=== PATIENT | male | born 1935 | race Caucasian/White ===

== ENCOUNTER 2021-06-08 11:37 | Outpatient (CLI) | payer MEDICARE, MEDICAID, SELFPAY ==
--- NOTE | 2021-06-08 11:50 | USCV_ITS ---
Christian Ace Age: 85 Gender: M : 1935 Exam Date: 06/08/2021 11:46 Ordering Phys: Angel Martin MD Technologist: Jesus Elliott RVT Exam Location: [facility] [place]_ Indication: COLD FEET RIGHT LEFT Brachial 178.00 mmHg Brachial 168.00 mmHg Pressure (mmHg) Waveform Pressure (mmHg) Waveform 93.00 MOTOR TESTER 192 190.00 DPA 240 1.07 Ankle/Brachial Index 75.00 Pre-Exercise Toe Pressure 70.00 0.42 Pre-Exercise Toe/Brachial Index 0.39 FINDINGS Resting VIKTORIYA of 1.07 on the right side and noncompressible vessels at the left ankle. Resting TBI 0.42 on the right side and 0.39 on the left side CONCLUSIONS Features suggestive of mild peripheral artery disease on the right side Features suggestive of moderate peripheral artery disease on the left side No similar previous studies are available for comparison Dr Suni Garcia MD [facility] (Electronically Signed) Final Date: 08 June 2021 19:24 S
== END 2021-06-08 11:38 | disposition home or self-care (01) ==
LOC: RAD 11:45
PROVIDERS: PCP Family Medicine; Visit Provider Family Medicine
DX: R68.89 Other general symptoms and signs (principal)
CPT/HCPCS: 93922

== ENCOUNTER 2021-09-18 08:08 | Outpatient (CLI) | payer MEDICARE, MEDICAID, SELFPAY ==
--- NOTE | 2021-09-18 08:13 | US_ITS ---
WS: [id number] ULTRASOUND SOFT TISSUES LEFT lateral lower thorax. HISTORY: LIPOMA/MASS OVER L LATERAL LOWER RIBS COMPARISON: None available. TECHNIQUE: 2-D and color Doppler imaging is submitted. Soft tissue masses along the LEFT lateral lower thorax. Corresponds to the palpable abnormalities. Th gosia masses are just slightly hyperechoic to the adjacent soft tissues. Confluent mass measures 6.6 x 5.8 x 3.2 cm. There is no increased vascularity. US/US soft tissue/extremity [id number] IMPRESSION: Soft tissue masses closely associated with each other along the LEFT lateral lo wer rib cage. Imaging findings consistent with lipomas. No increased vascularit y.
== END 2021-09-18 08:09 | disposition home or self-care (01) ==
LOC: RAD 08:09
PROVIDERS: PCP Family Medicine; Visit Provider Family Medicine
DX: D17.9 Benign lipomatous neoplasm, unspecified (principal)
CPT/HCPCS: 76882

== ENCOUNTER 2022-12-11 07:42 | Outpatient (CLI) | payer MEDICARE, MEDICAID, SELFPAY ==
--- NOTE | 2022-12-11 07:48 | US_ITS ---
WS: [id number] ULTRASOUND SOFT TISSUES RIGHT neck. HISTORY: NECK MASS COMPARISON: None available. TECHNIQUE: 2-D and color Doppler imaging is submitted. Ultrasound is directed to the RIGHT neck in the area of the palpable abnormality. There is a hypoecho ic well-circumscribed nodule measuring 7 x 7 x 4 mm. No increased vascularity. Probably a lymph node although the fatty hilum is not well demonstrated. The size is otherwise normal. Similar findings not ed on the LEFT neck. US/US soft tissue/extremity [id number] IMPRESSION: Palpable nodules RIGHT lateral neck correspond to benign-appearing lymph nodes.
== END 2022-12-11 07:43 | disposition home or self-care (01) ==
PROVIDERS: PCP Family Medicine; Visit Provider Family Medicine
DX: R22.1 Localized swelling, mass and lump, neck (principal)
CPT/HCPCS: 76882

== ENCOUNTER 2023-03-07 09:06 | Emergency (ER) | payer MEDICARE, MEDICAID, SELFPAY ==
[2023-03-07 09:07] VITALS: BP 200/96; PULSE 73; RESP 18; TEMP 36.5; O2SAT 98; BMI 31.4
--- NOTE | 2023-03-07 09:26 | XRR_ITS ---
PROCEDURE INFORMATION: Exam: XR Left Hip Exam date and time: 03/07/2023 9:39 AM Age: 87 years old Clinical indication: Injury or trauma; Fall; Blunt trauma (contusions or hematomas); Left; Hip TECHNIQUE: Imaging protocol: Radiologic exam of the left hip. Views: 2 or 3 views hip with pelvis when performed. COMPARISON: No relevant prior studies available. FINDINGS: Limitations: Study is limited two-view examination with suboptimal patient positioning. Bones/joints: There is an obliquely oriented linear area of sclerosis along the medial aspect of the left femoral head that may be due to overlap but inconclusive for fracture. Left pubic bone and pubic rami are difficult to assess due to obscuring fecal material. Remainder of visualized osseous structures are intact. No dislocation or malalignment. Soft tissues: Unremarkable. XR/XR hip LT 2-3V wo/w pel* [id number] IMPRESSION: Findings inconclusive for fracture of the left femoral head. Recommend follow-up CT exam of the pelvis for clarification.
--- NOTE | 2023-03-07 09:26 | XRR_ITS ---
PROCEDURE INFORMATION: Exam: XR Pelvis Exam date and time: 03/07/2023 9:44 AM Age: 87 years old Clinical indication: Injury or trauma; Fall; Blunt trauma (contusions or hematomas); Does not apply; Pelvic region TECHNIQUE: Imaging protocol: Radiologic exam of the pelvis. Views: 1 or 2 view. COMPARISON: CR XR hip LT 2-3V wo/w pel* [id number] 03/07/2023 9:39 AM FINDINGS: Bones/joints: Unremarkable. No fracture, malalignment or deformity detected. No significant degenerative joint changes. Soft tissues: Unremarkable. XR/XR pelvis 1-2V* [id number] IMPRESSION: No acute findings.
--- NOTE | 2023-03-07 09:27 | ED_ITS ---
HPI - Fall General: Chief Complaint: Fall Stated Complaint: fall, left side/lower body injury Time Seen by Provider: 03/07/23 09:08 Source: patient Mode of arrival: ambulatory History of Present Illness: 87-year-old male who presents emergency room using a walker. About 4 to 5 days ago he was using his walker slipped out from underneath him and he landed on his buttocks he did not strike his head he did not lose consciousness. He has been ambulating since then with a walker he ambulated to the exam room today he is able to bear weight but does have some discomfort no back pain he denies striking his head there is no loss of consciousness. This morning he noticed some ecchymosis on the medial and posterior aspects of his left thigh. MD complaint: fall Onset (ago): day(s) (4) Fall from: standing Fall witnessed: yes, by family Place fall occurred: home Symptoms prior to fall: none Location of injury: head Associated symptoms-after fall: Denies abdominal pain, chest pain or neck pain Review of Systems Const: Denies: fever(s) or chills Card: Denies: chest pain Resp: Denies: dyspnea GI: Denies: abdominal pain : Denies: dysuria, urinary frequency or urinary urgency Musc: Denies: neck pain or back pain Skin/Breast: Denies: rash Physical Exam Const: GENERAL APPEARANCE: cooperative and comfortable ORIENTATION/CONSCIOUSNESS: Yes awake, Yes oriented to person, Yes oriented to place and Yes oriented to time HENMT: COMMON NORMALS: normocephalic, atraumatic and hearing grossly normal bilaterally HEAD & SCALP: normocephalic and atraumatic Resp: COMMON NORMALS: normal respiratory effort, No retractions, No use of accessory muscles and clear to auscultation bilaterally AUSCULTATION: clear to auscultation bilaterally Cardio: COMMON NORMALS: regular rate, regular rhythm and No murmurs present (Cardio) RATE: regular rate RHYTHM: regular rhythm GI: COMMON NORMALS: Soft to palpation and No hepatosplenomegaly present AUSCULTATION: Yes normoactive bowel sounds PALPATION: Yes Soft to palpation, No Tenderness to palpation present (GI), No Guarding due to palpation present (GI) and Yes No hepatosplenomegaly present Extremity: COMMON NORMALS: normal to inspection, capillary refill normal, no clubbing, cyanosis or edema, no calf tenderness and no pedal edema OTHER: Ecchymosis medial and posterior left thigh no induration no signs of infection Neuro: SENSORIUM/ORIENTATION: Yes oriented to person, Yes oriented to place and Yes oriented to time Skin: COMMON NORMALS: no rashes or lesions noted GENERAL SKIN EXAM: no rashes or lesions noted Course Vital Signs: Vital signs: Vital Signs Temperature 97.7 F 03/07/23 09:07 Pulse Rate 66 03/07/23 11:27 Respiratory Rate 16 03/07/23 11:27 Blood Pressure 160/88 03/07/23 11:27 Pulse Oximetry 96 03/07/23 11:27 Oxygen Delivery Me thod Room Air 03/07/23 11:27 MDM - Fall Medical Decision Making Pelvis x-rays were normal of left hip there is a question of possible subclinical femoral head fracture recommended CT. CT did not show any acute fracture. Suspect the hematoma is from soft tissue injury with the fall. Reviewed findings with the patient. No evidence of DVT at this time reassured him that the hematoma forming in the back of the left leg is not what we generally worry about with a deep vein thrombosis. Medical Records I reviewed the patient's medical records. Lab Data I reviewed the patient's lab results. 03/07/23 09:36 03/07/23 09:36 Radiology Impressions Hip/Pelvis X-Ray 03/07/23 09:26 IMPRESSION: Findings inconclusive for fracture of the left femoral head. Recommend follow-up CT exam of the pelvis for clarification. Pelvis X-Ray 03/07/23 09:26 IMPRESSION: No acute findings. Laboratory Results WBC 3.07 10^3/uL (3.29-11.43) L 03/07/23 09:36 RBC 3.65 10^6/uL (3.85-5.65) L 03/07/23 09:36 Hgb 12.40 g/dL (11.27-16.99) 03/07/23 09:36 Hct 36.8 % (37-53) L 03/07/23 09:36 MCV 100.8 fl (82-101) 03/07/23 09:36 MCH 34.0 pg (27-33) H 03/07/23 09:36 MCHC 33.7 g/dL (30-55) 03/07/23 09:36 RDW 17.8 % (12.1-15.1) H 03/07/23 09:36 Plt Count 93 10^3/cmm (157-399) L 03/07/23 09:36 MPV 8.0 fL (7.4-10.4) 03/07/23 09:36 Neut % (Auto) 64.1 % 03/07/23 09:36 Lymph % (Auto) 29.0 % 03/07/23 09:36 [place] % (Auto) 4.9 % 03/07/23 09:36 Eos % (Auto) 1.0 % 03/07/23 09:36 Baso % (Auto) 0.7 % 03/07/23 09:36 Neut # (Auto) 1.97 10^3/uL (1.8-7.7) 03/07/23 09:36 Lymph # (Auto) 0.9 10^3/uL (0.8-4.8) 03/07/23 09:36 [place] # (Auto) 0.2 10^3/uL (0.2-0.9) 03/07/23 09:36 Eos # (Auto) 0.0 10^3/uL (0.0-0.8) 03/07/23 09:36 Baso # (Auto) 0.0 10^3/uL (0.0-0.1) 03/07/23 09:36 Nucleated RBC % (auto) 0 % 03/07/23 09:36 Nucleated RBCs # 0.0 /100WBC 03/07/23 09:36 Sodium 143 mmol/L (136-145) 03/07/23 09:36 Potassium 4.5 mmol/L (3.5-5.1) 03/07/23 09:36 Chloride 107 mmol/L (98-107) 03/07/23 09:36 Carbon Dioxide 27 mmol/L (22-29) 03/07/23 09:36 Anion Gap 13.5 (5-19) 03/07/23 09:36 BUN 24 mg/dL (8-23) H 03/07/23 09:36 Creatinine 1.0 mg/dL (0.7-1.2) 03/07/23 09:36 GFR Calculation Not Reportable 03/07/23 09:36 Glucose 104 mg/dL (65-115) 03/07/23 09:36 Calculated Osmolality 300 mOsm/kg (285-295) H 03/07/23 09:36 Calcium 9.0 mg/dL (8.5-10.5) 03/07/23 09:36 Total Bilirubin 1.7 mg/dL (0.15-1.2) H 03/07/23 09:36 AST 13 U/L (0-40) 03/07/23 09:36 ALT 8 U/L (0-41) 03/07/23 09:36 Alkaline Phosphatase 72 U/L (40-130) 03/07/23 09:36 Total Protein 6.6 g/dL (6.6-8.7) 03/07/23 09:36 Albumin 4.3 g/dL (3.5-5.2) 03/07/23 09:36 Globulin 2.3 g/dL (1.3-4.6) 03/07/23 09:36 Urine Color Dark yellow (Yellow) 03/07/23 10:27 Urine Appearance Clear (CLEAR) 03/07/23 10:27 Urine pH 5 (5-7) 03/07/23 10:27 Ur Specific [place] 1.020 (1.005-1.030) 03/07/23 10:27 Urine Protein Neg (Negative) 03/07/23 10:27 Urine Glucose (UA) Norm (Normal) 03/07/23 10:27 Urine Ketones Negative (Negative) 03/07/23 10:27 Urine Blood 2+ (Negative) H 03/07/23 10:27 Urine Nitrate Negative (Negative) 03/07/23 10:27 Urine Bilirubin Neg (Negative) 03/07/23 10:27 Urine Urobilinogen 1 mg/dL (Negative) H 03/07/23 10:27 Ur Leukocyte Esterase Negative (Negative) 03/07/23 10:27 Urine RBC 0-4 /hpf (0-2) H 03/07/23 10:27 Urine WBC 0-4 /hpf (0-5) H 03/07/23 10:27 Ur Squamous Epith Cells 0-4 /hpf (0-5) H 03/07/23 10:27 Amorphous Sediment Not Reportable 03/07/23 10:27 Urine Bacteria Trace /hpf (NONE) 03/07/23 10:27 Urine Mucus 1+ /hpf 03/07/23 10:27 All radiology interpretation(s) finalized by discharge Discharge Plan Discharge Patient Disposition: Home Clinical Impression: Fall, Acute pain of left hip Condition: Stable Prescriptions: No Action cilostazol 100 mg tablet 100 mg PO BID lisinopril 10 mg tablet 10 mg PO DAILY fluoxetine 10 mg capsule 10 mg PO DAILY Aspir-81 81 mg Tablet,Delayed Release (Dr/Ec) 81 mg PO DAILY Discharge Orders: Discharge ED (Routine); Ordered 03/07/23 Ordered By: Cipriano Ceja Referrals: Angel Martin MD [Primary Care Provider] - Discharge Diet: Usual diet Discharge Activity: Increase activity as tolerated Patient Instructions: Opioid Safety, Pain Management Activity Restrictions/Additional Instructions: You were seen today for a fall and bruising in your left leg. x-rays and CT did not show any acute fracture. You can use ice ibuprofen or Tylenol for relief of symptoms follow-up with your primary care doctor as needed. Coding Level of Care Code ED Virtual Customer Assistant for Lo Vasquez
[2023-03-07 09:43] LABS: Basophils % 0.7 %; Hematocrit 36.8 % (37-53); Lymphocytes # 0.9 10^3/uL (0.8-4.8); Mean Corpuscular HGB Conc 33.7 g/dL (30-55); Mean Corpuscular Volume 100.8 fl (82-101); Monocytes # 0.2 10^3/uL (0.2-0.9); Monocytes % 4.9 %; Neutrophils # 1.97 10^3/uL (1.8-7.7); Neutrophils % 64.1 %; Nucleated Red Blood Cells % 0 %; Platelet Count 93 10^3/cmm (157-399); Red Blood Count 3.65 10^6/uL (3.85-5.65); Red Cell Distribution Width 17.8 % (12.1-15.1); White Blood Count 3.07 10^3/uL (3.29-11.43)
[2023-03-07 09:54] VITALS: BP 191/87; PULSE 70; RESP 16; O2SAT 97
[2023-03-07 10:03] LABS: Alanine Aminotransferase 8 U/L (0-41); Albumin Level 4.3 g/dL (3.5-5.2); Alkaline Phosphatase 72 U/L (40-130); Anion Gap 13.5 (5-19); Aspartate Amino Transferase 13 U/L (0-40); Blood Urea Nitrogen 24 mg/dL (8-23); Carbon Dioxide 27 mmol/L (22-29); Chloride 107 mmol/L (98-107); Globulin 2.3 g/dL (1.3-4.6); Glucose 104 mg/dL (65-115); Osmolality Calculated 300 mOsm/kg (285-295); Potassium 4.5 mmol/L (3.5-5.1); Sodium 143 mmol/L (136-145); Total Bilirubin 1.7 mg/dL (0.15-1.2); Total Protein 6.6 g/dL (6.6-8.7)
--- NOTE | 2023-03-07 10:37 | CT_ITS ---
WS: [id number] NONCONTRAST CT LEFT HIP TECHNIQUE: Noncontrast CT LEFT hip with coronal and sagittal reformatted images. CLINICAL INFORMATION: trauma COMPARISON: None. DLP: 494.[address] scans at [facility] use at least one of these dose optimization techniques: automated e xposure control; mA and/or kV adjustment per patient size (includes targeted exams where dose is matc hed to clinical indication); or iterative reconstruction. FINDINGS: Osteopenia. Moderate degenerative arthritis LEFT hip. Hypertrophic changes about the acetabulum and f emoral neck. Normal femoral head. No acute fractures. No evidence of avascular necrosis. Normal visua lized pubic rami. Vascular calcification. Degenerative arthritis LEFT sacroiliac joint. Normal acetab ulum. IMPRESSION: No acute LEFT hip fractures
[2023-03-07 10:55] LABS: Add Urine Microscopic? YES; Bilirubin Urine Neg (Negative); Blood Urine 2+ (Negative); Glucose Urine UA Norm (Normal); Ketones Urine Negative (Negative); Leukocyte Esterase Urine Negative (Negative); Nitrate Urine Negative (Negative); Protein Urine Neg (Negative); Urine Appearance Clear (CLEAR); Urine Color Dark Yellow (Yellow); Urobilinogen Urine 1 mg/dL (Negative); pH Urine 5 (5-7)
[2023-03-07 11:09] LABS: Add Urine Culture? No; Bacteria Urine TRACE /hpf; Mucus Urine 1+ /hpf; RBC Urine 0-4 /hpf (0-2); Squamous Epithelial Cell Urine 0-4 /hpf (0-5); WBC Urine 0-4 /hpf (0-5)
[2023-03-07 11:27] VITALS: BP 160/88; PULSE 66; RESP 16; O2SAT 96
== END 2023-03-07 12:02 | disposition home or self-care (01) ==
PROVIDERS: Emergency Provider Family Medicine; PCP Family Medicine
DX: M25.552 Pain in left hip (principal); Z79.82 Long term (current) use of aspirin
CPT/HCPCS: 36415; 72170; 73502; 73700; 80053; 81001; 85025; 99284

== ENCOUNTER 2024-06-09 07:47 | Outpatient (CLI) | payer MEDICARE, MEDICAID, SELFPAY ==
--- NOTE | 2024-06-09 07:49 | CT_ITS ---
WS: [id number] CT HEAD NONCONTRAST HISTORY: MEMORY LOSS TECHNIQUE: Contiguous axial imaging performed through the brain. Bone and soft tissue windows. Sagitt al and coronal reformats reviewed. All CT scans at [facility] use at least one of these dose optimization techniques: automated exposure control; mA and/or kV adjustment per patient size (includ es targeted exams where dose is matched to clinical indication); or iterative reconstruction. DLP: 1172.18 mGy.cm COMPARISON: 04/15/2013 No acute intracranial hemorrhage, midline shift or mass effect. Moderate symmetric atrophy with mild small vessel ischemic changes in the white matter. 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 Mild bilateral cerebellar atrophy. Progression of atrophy a nd small vessel disease since the prior study. Prominent perivascular space versus lacunar infarct in the LEFT inferior basal ganglia. Ventricles: Normal size with no hydrocephalus. Enlarged pituitary extends 1.5 cm in superior-inferior diameter which has been previously described. 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 No interval change in size. Paranasal sinuses: Dense mucoperiosteal thickening in the maxillary and ethmoid air cells. Frothy sec retions in the RIGHT frontal sinus. Mastoid air cells: Fluid in the RIGHT mastoid air cells. Calvarium and scalp: Hyperostosis frontalis interna. Lipoma in the subcutaneous soft tissue in the oc cipital region. No change in the lipoma since 2012. CT/CT head wo con* [id number] IMPRESSION: 1. No acute intracranial hemorrhage or edema. 2. 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 Mild progression of chronic changes si nce 2012. No acute infarct. 3. Pansinusitis, most significant in the maxillary and frontal sinuses. 4. Fluid in the RIGHT mastoid air cells.
[2024-06-09 09:08] LABS: Basophils % 0.4 %; Eosinophils % 0.4 %; Hematocrit 26.6 % (37-53); Lymphocytes # 0.8 10^3/uL (0.8-4.8); Lymphocytes % 33.6 %; Mean Corpuscular HGB Conc 32.7 g/dL (30-55); Mean Corpuscular Hemoglobin 34.3 pg (27-33); Mean Corpuscular Volume 104.7 fl (82-101); Mean Platelet Volume 8.2 fL (7.4-10.4); Monocytes # 0.1 10^3/uL (0.2-0.9); Neutrophils # 1.34 10^3/uL (1.8-7.7); Neutrophils % 60.3 %; Nucleated Red Blood Cells % 0.9 %; Platelet Count 82 10^3/cmm (157-399); Red Blood Count 2.54 10^6/uL (3.85-5.65); Reticulocyte % 7.2 % (0.5-2.0); White Blood Count 2.23 10^3/uL (3.29-11.43)
[2024-06-09 09:27] LABS: C Reactive Protein 16.5 mg/L (0.0-4.9); Iron 88 ug/dL (59-158); Total Iron Binding Capacity 187 mcg/dl; Unsaturated Iron Binding 99 ug/dL (112-347)
[2024-06-09 09:43] LABS: Complement C3 111 mg/dL (90-180); Vitamin B12 230 pg/mL (232-1245)
[2024-06-09 09:45] LABS: Folate Level 6.5 ng/mL (4.5-32.2)
[2024-06-09 09:57] LABS: LAB Peripheral Smear Sent for Review
[2024-06-09 11:43] LABS: Ferritin 832 ng/mL (30-400)
[2024-06-11 18:32] LABS: Anti-Nuclear Antibody Screen NEGATIVE (NEGATIVE)
[2024-06-12 09:56] LABS: Anti-Double Strand DNA AB <1 IU/mL
== END 2024-06-09 07:48 | disposition home or self-care (01) ==
PROVIDERS: PCP Family Medicine; Visit Provider Family Medicine
DX: D17.9 Benign lipomatous neoplasm, unspecified (principal); D61.818 Other pancytopenia; G31.9 Degenerative disease of nervous system, unspecified; J32.4 Chronic pansinusitis
CPT/HCPCS: 36415; 70450; 80503; 82607; 82728; 82746; 83540; 83550; 85025; 85045; 86038; 86140; 86160; 86225

== ENCOUNTER 2024-07-05 12:27 | Observation (INO) | payer MEDICARE, MEDICAID, SELFPAY ==
[2024-07-05] VITALS (34 sets, daily range): BP systolic 96–135; BP diastolic 40–56; PULSE 68–85; RESP 17–32; TEMP 36.3–37.1; O2SAT 90–98; BMI 31.4
--- NOTE | 2024-07-05 12:28 | ECG_ITS ---
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 Measurements Intervals [place] Rate: 90 P: 0 MO: 0 QRS: 54 QRSD: 153 T: 11 QT: 379 QTc: 465 Interpretive Statements Multi focal atrial rhythm. INDETERMINATE AXIS RIGHT BUNDLE BRANCH BLOCK [120+ ms QRS DURATION, UPRIGHT V1, 40+ ms S IN I/aVL/V4/V5/V6] Compared to ECG 01/27/2018 20:39:50 Indeterminate axis now present Right bundle-branch block now present Sinus rhythm no longer present Sinus arrhythmia no longer present Electronically Signed On 07-05-2024 18:39:41 CUSTOMER CARE TEAM COACH by Suni Garcia M.D. [email or web address] [email or web address]
--- NOTE | 2024-07-05 12:40 | XRR_ITS ---
PROCEDURE INFORMATION: Exam: XR Chest Exam date and time: 07/05/2024 12:55 PM Age: 88 years old Clinical indication: Cough and shortness of breath; Additional info: [place] SOB TECHNIQUE: Imaging protocol: Radiologic exam of the chest. Views: 1 view. COMPARISON: CR XR chest 1V [id number] 01/27/2018 6:23 PM FINDINGS: Lungs: Bibasilar atelectasis. There is no evidence of focal pulmonary consolidation. Pleural spaces: Unremarkable. No pleural effusion. No pneumothorax. Heart/Mediastinum: Unremarkable. No cardiomegaly. Vasculature: There are aortic arch calcifications. Diaphragm: Elevated left hemidiaphragm. Bones/joints: There are severe degenerative changes of the glenohumeral joint. Moderate degenerative disease of bilateral acromioclavicular joints. The thoracic spine demonstrates mild degenerative changes at multiple levels. XR/XR chest 1V portable [id number] IMPRESSION: No acute cardiopulmonary process.
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
[2024-07-05] MEDS: ipratropium-albuterol 3 mL Neb INHALATION (12:52)
[2024-07-05 13:00] LABS: Mean Corpuscular HGB Conc 31.9 g/dL (30-55); Mean Corpuscular Hemoglobin 32.3 pg (27-33); Mean Corpuscular Volume 101.5 fl (82-101); Mean Platelet Volume 10.2 fL (7.4-10.4); Platelet Count 32 10^3/cmm (157-399); Red Blood Count 2.01 10^6/uL (3.85-5.65); Red Cell Distribution Width 20.2 % (12.1-15.1); White Blood Count 16.95 10^3/uL (3.29-11.43)
[2024-07-05 13:19] LABS: Anion Gap 15.3 (5-19); Blood Urea Nitrogen 28 mg/dL (8-23); Calcium 8.1 mg/dL (8.5-10.5); Carbon Dioxide 25 mmol/L (22-29); Chloride 101 mmol/L (98-107); Glucose 143 mg/dL (65-115); Osmolality Calculated 292 mOsm/kg (285-295); Potassium 4.3 mmol/L (3.5-5.1); Sodium 137 mmol/L (136-145)
[2024-07-05 13:20] LABS: Troponin(5th) Baseline 66 ng/L (0-15)
[2024-07-05 13:27] LABS: Slide Review Slide Review Perform
[2024-07-05 13:29] LABS: Hematocrit 20.4 % (37-53)
[2024-07-05 13:35] LABS: Influenza A NEGATIVE (Negative); Influenza B NEGATIVE (Negative); Respiratory Syncytial Virus Ce NEGATIVE (Negative); SARS-CoV-2 PCR NEGATIVE (Negative)
[2024-07-05 13:39] LABS: Absolute Eosinophils 0.2 10^3/cmm (0.0-0.7); Absolute Segmented Neutrophil 2.2 10/cmm (1.6-7.1); Band Neutrophils Absolute 0.8 10^3/cmm (0.0-1.2); Eosinophils 1 %; Lymphocytes 40 %; Lymphocytes Absolute 9.5 10^3/cmm (1.2-3.4); Monocytes Absolute 1.2 10^3/cmm (0.1-0.6); Segmented Neutrophils 13 %; Total Cells Counted 100 (0-100)
[2024-07-05 13:40] LABS: Anisocytosis 2+; Blastocytes 12 % (0-0); Macrocytosis 1+
[2024-07-05 13:41] LABS: Absolute Neutrophil 3.1 10^3/cmm (1.4-6.5); Ovalocytes 1+; Platelet Estimate Decreased (Normal)
[2024-07-05 13:44] LABS: Creatinine Clr Calc Pharmacy 36.5373
--- NOTE | 2024-07-05 14:41 | ECG_ITS ---
[email or web address] [email or web address] Test Date: 2024-07-05 Pat Name: Christian Ace Department: Room: Gender: Male Stock Control Clerk: : 1935 Requested By: Omar Vasquez Order Number: [id number] Bere MD: Suni Garcia M.D. Measurements Intervals Whitney Rate: 75 P: 83 CT: 200 QRS: 37 QRSD: 149 T: -1 QT: 412 QTc: 461 Interpretive Statements SINUS RHYTHM WITH OCCASIONAL VENTRICULAR PREMATURE COMPLEXES INDETERMINATE AXIS RIGHT BUNDLE BRANCH BLOCK [120+ ms QRS DURATION, UPRIGHT V1, 40+ ms S IN I/aVL/V4/V5/V6] Compared to ECG 07/05/2024 12:28:10 Ventricular premature complex(es) now present Electronically Signed On 07-05-2024 18:51:17 [employer]EROCK TOWER LOADER by Suni Garcia M.D. [email or web address]
[2024-07-05 15:02] LABS: Troponin 5 2HR 67.16 ng/L (0-15); Troponin 5 2HR Delta 1.16 ABS# (0-10)
[2024-07-05 16:49] LABS: INR 1.35 (0.8-1.2)
[2024-07-05 16:50] LABS: Fibrinogen 553 mg/dL (174-498); Partial Thromboplastin Time 48.5 SECONDS (23.9-36.7)
[2024-07-05 16:56] LABS: Lactate Dehydrogenase 358 U/L (135-225); Uric Acid 10.2 mg/dL (3.4-7.0)
--- NOTE | 2024-07-05 22:23 | PC.NURSE ---
[facility] updated on patient over the phone.
[2024-07-06] VITALS (60 sets, daily range): BP systolic 93–142; BP diastolic 39–94; PULSE 66–96; RESP 16–32; O2SAT 88–100
[2024-07-06] MEDS: sodium chloride 0.9% 1,000 ML 125 ML IV (13:19)
[2024-07-07] VITALS (75 sets, daily range): BP systolic 103–155; BP diastolic 45–92; PULSE 71–98; RESP 15–38; TEMP 36.5–36.8; O2SAT 66–100; BMI 31.4
[2024-07-07] MEDS: sodium chloride 0.9% 1,000 ML 125 ML IV ×2 (01:28→10:12)
--- NOTE | 2024-07-07 06:29 | USCV_ITS ---
Christian Ace Age: 88 Gender: M : 1935 Exam Date: 07/07/2024 06:44 Ordering Phys: Cipriano Ceja DO Technologist: Exam Location: [facility] [place] Indication: cp tach BP: 130 / 65 HR: 128 Rhythm: Sinus Technical Quality: Adequate MEASUREMENTS (Male / Female) Normal Values 2D ECHO LV Diastolic Diameter PLAX 3.7 cm 4.2 - 5.9 / 3.9 - 5.3 cm IVS Diastolic Thickness 1.9 cm 0.6 - 1.0 / 0.6 - 0.9 cm IVS Systolic Thickness 1.9 cm LVPW Diastolic Thickness 1.4 cm 0.6 - 1.0 / 0.6 - 0.9 cm LVPW Systolic Thickness 1.7 cm LVOT Diameter 2.1 cm LV Ejection Fraction 2D Teich 44.1 % LV Ejection Fraction MOD 4C 36.3 % LA Diameter 4.3 cm RA Systolic Volume 4C AL 99.7 ml RA Systolic Volume 4C MOD 101.5 ml Aorta at Sinotubular Diameter 4.2 cm IVC Diameter 2.6 cm M-MODE LA Ao Ratio MM 1.2 AV Cusp Separation MM 1.6 cm DOPPLER AV Peak Velocity 170.0 cm/s LVOT Peak Velocity 119.0 cm/s AV Area Cont Eq vti 2.9 cm squared AV Area Cont Eq pk 2.4 cm squared MV Peak Velocity 109.0 cm/s MV Area PHT 6.0 cm squared Mitral E to A Ratio 0.7 TV Peak Velocity 284.0 cm/s TR Peak Velocity 290.0 cm/s TR Peak Gradient 33.6 mmHg TV Peak E Velocity 113.0 cm/s PV Peak Velocity 146.0 cm/s FINDINGS Left Ventricle Left ventricule is normal in size. LV systolic function is normal with EF of 55-60%. No regional wall motion abnormalities. Grade 1 diastolic dysfunction Right Ventricle Normal in size and function Right Atrium Dilated Left Atrium Severely dilated Mitral Valve Structurally normal mitral valve. Mild mitral regurgitation. Aortic Valve Aortic valve is thickened. No significant stenosis. Mild aortic regurgitation. Tricuspid Valve Mild tricuspid regurgitation. RVSP is normal Pulmonic Valve Mild pulmonic regurgitation Pericardium Normal Aorta Not well visualized IVC Not well visualized CONCLUSIONS LV systolic function is normal with EF of 55-60% Grade 1 diastolic dysfunction Mild mitral regurgitation Mild tricuspid regurgitation Mild pulmonic regurgitation Feliz Montanez MD (Electronically Signed) Final Date: 07 July 2024 19:59 S
--- NOTE | 2024-07-07 06:30 | XR_ITS ---
WS: [id number] Exam: XR chest 1V portable [id number] Date/Time of Exam: 07/07/2024 7:16 AM Reason For Exam: dyspnea/cough Comparison 07/05/2024. Lungs are fully expanded. Chronic interstitial changes. Cardiomediastinal silhouette is unremarkable for technique. No pleural effusions. End-stage DJD of both shoulders. XR/XR chest 1V portable [id number] IMPRESSION: 1. Chronic interstitial changes. No acute process noted.
--- NOTE | 2024-07-07 06:32 | ECG_ITS ---
[facility] Date: 2024-[facility]07 Pat Name: Christian Ace Department: Room: Gender: Male Offset Printing Operator: : 1935 Requested By: Cipriano Means Order Number: [id number] Bere MD: Feliz Montanez M.D. Measurements Intervals Otis Rate: 91 P: 43 OR: 231 QRS: 63 QRSD: 160 T: 47 QT: 395 QTc: 488 Interpretive Statements SINUS RHYTHM WITH FIRST DEGREE AV BLOCK WITH FREQUENT VENTRICULAR PREMATURE COMPLEXES RIGHT BUNDLE BRANCH BLOCK [120+ ms QRS DURATION, UPRIGHT V1, 40+ ms S IN I/aVL/V4/V5/V6] Compared to ECG 07/05/2024 14:37:44 First degree AV block now present Indeterminate axis no longer present Electronically Signed On 07-09-2024 17:55:33 CONFIGURATION MANAGEMENT SPECIALIST by Feliz Montanez M.D. [email or web address]
[2024-07-07 07:16] LABS: Mean Corpuscular HGB Conc 31.3 g/dL (30-55); Mean Corpuscular Volume 102.2 fl (82-101); Mean Platelet Volume 7.8 fL (7.4-10.4); Red Blood Count 2.25 10^6/uL (3.85-5.65); Red Cell Distribution Width 19.9 % (12.1-15.1); White Blood Count 15.45 10^3/uL (3.29-11.43)
[2024-07-07 07:41] LABS: Alanine Aminotransferase 7 U/L (0-41); Albumin Level 3.3 g/dL (3.5-5.2); Alkaline Phosphatase 49 U/L (40-130); Aspartate Amino Transferase 12 U/L (0-40); Blood Urea Nitrogen 35 mg/dL (8-23); Carbon Dioxide 23 mmol/L (22-29); Chloride 104 mmol/L (98-107); Creatinine Clr Calc Pharmacy 38.8209; Globulin 2.7 g/dL (1.3-4.6); Glucose 162 mg/dL (65-115); Magnesium 2.1 mg/dL (1.7-2.3); NT Pro B Type Natriuretic Pept 14376 pg/mL (0-450); Osmolality Calculated 298 mOsm/kg (285-295); Sodium 138 mmol/L (136-145); Total Bilirubin 0.9 mg/dL (0.15-1.2)
[2024-07-07 07:58] LABS: Absolute Segmented Neutrophil 2.8 10/cmm (1.6-7.1); Platelet Count 21 10^3/cmm (157-399); Slide Review Slide Review Perform; Total Cells Counted 100 (0-100)
[2024-07-07 07:59] LABS: Absolute Neutrophil 3.1 10^3/cmm (1.4-6.5); Band Neutrophils Absolute 0.3 10^3/cmm (0.0-1.2); Blastocytes 27 % (0-0); Eosinophils 0 %; Lymphocytes 24 %; Lymphocytes Absolute 8.2 10^3/cmm (1.2-3.4); Platelet Estimate Decreased (Normal); Segmented Neutrophils 18 %
[2024-07-07] MEDS: pantoprazole 40 mg SDV 80 MG IVP (08:19)
[2024-07-07 09:12] LABS: Influenza A NEGATIVE (Negative); Influenza B NEGATIVE (Negative); Respiratory Syncytial Virus Ce NEGATIVE (Negative); SARS-CoV-2 PCR NEGATIVE (Negative)
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
--- NOTE | 2024-07-07 16:03 | DCPLANNER ---
Spoke to Mahendra at [facility] transfer- [phone] bed will be held - Vitaliy Augustin unable to take tonight- spoke to sabino and they can take patient tomorrow- Nurse needs to contact [facility] in the Morning to give possible ETA.
[2024-07-07] MEDS: sodium chloride 0.9% 1,000 ML 30 ML IV (18:37)
[2024-07-08] VITALS (8 sets, daily range): BP systolic 106–169; BP diastolic 48–67; PULSE 72–101; RESP 17–21; TEMP 36.6–36.9; O2SAT 92–99; BMI 32.5
[2024-07-08 08:23] LABS: Basophils % 0.1 %; Eosinophils # 0.1 10^3/uL (0.0-0.8); Eosinophils % 0.2 %; Hematocrit 23.4 % (37-53); Lymphocytes # 5.9 10^3/uL (0.8-4.8); Lymphocytes % 21.4 %; Mean Corpuscular HGB Conc 32.1 g/dL (30-55); Mean Corpuscular Hemoglobin 32.3 pg (27-33); Mean Corpuscular Volume 100.9 fl (82-101); Monocytes # 17.4 10^3/uL (0.2-0.9); Monocytes % 63.7 %; Neutrophils # 2.76 10^3/uL (1.8-7.7); Neutrophils % 10.1 %; Nucleated Red Blood Cells # 0.6 /100WBC; Nucleated Red Blood Cells % 2.3 %; Red Blood Count 2.32 10^6/uL (3.85-5.65); Red Cell Distribution Width 19.3 % (12.1-15.1); White Blood Count 27.38 10^3/uL (3.29-11.43)
[2024-07-08 08:47] LABS: Alanine Aminotransferase 8 U/L (0-41); Albumin Level 3.3 g/dL (3.5-5.2); Alkaline Phosphatase 51 U/L (40-130); Anion Gap 18.2 (5-19); Aspartate Amino Transferase 14 U/L (0-40); Blood Urea Nitrogen 36 mg/dL (8-23); Calcium 8.1 mg/dL (8.5-10.5); Carbon Dioxide 22 mmol/L (22-29); Chloride 103 mmol/L (98-107); Creatinine Clr Calc Pharmacy 37.1588; Globulin 2.8 g/dL (1.3-4.6); Glucose 162 mg/dL (65-115); Osmolality Calculated 300 mOsm/kg (285-295); Potassium 4.2 mmol/L (3.5-5.1); Sodium 139 mmol/L (136-145); Total Bilirubin 1.2 mg/dL (0.15-1.2); Total Protein 6.1 g/dL (6.6-8.7)
[2024-07-08] MEDS: pantoprazole 40 mg SDV IVP ×2 (09:23→18:46)
--- NOTE | 2024-07-08 09:30 | PC.NURSE ---
This nurse contacted [facility] and spoke with Viviana at the transfer line on patients transfer. Patient has a bed and it is room 8813. This nurse told Viviana that we are working on transportation and will call her back with an update.
[2024-07-08 09:34] LABS: Platelet Count 25 10^3/cmm (157-399)
[2024-07-08 09:35] LABS: Slide Review Slide Review Perform
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
[2024-07-08] MEDS: doxycycline 100 MG in sodium chloride 0.9% (plus) 100 ML IV ×2 (11:16→23:25)
[2024-07-08] MEDS: cefTRIAXone 1,000 mg SDV 1000 MG IVP (11:16)
[2024-07-08 13:17] LABS: Bilirubin Urine 1+ (Negative); Blood Urine Negative (Negative); Glucose Urine UA Negative (Normal); Ketones Urine Trace (Negative); Leukocyte Esterase Urine Trace (Negative); Nitrate Urine Negative (Negative); Protein Urine 1+ (Negative); Urine Appearance Cloudy (CLEAR); Urine Color Dark Yellow (Yellow)
[2024-07-08 13:27] LABS: UA Manual Slide Review YES; UA Slide Review UA Slide Review Perf
[2024-07-08 13:28] LABS: Add Urine Microscopic? YES; RBC Urine 0-4 /hpf (0-2); WBC Urine 0-4 /hpf (0-5)
[2024-07-08 13:29] LABS: Add Urine Culture? No; Amorphous Sediment Urine 1+ /hpf; Bacteria Urine TRACE /hpf; Hyaline Casts Urine 0-4 /lpf; Mucus Urine TRACE /hpf; Squamous Epithelial Cell Urine 0-4 /hpf (0-5)
--- NOTE | 2024-07-08 15:52 | PC.NURSE ---
This nurse set up an air evac ride to [facility] patient care nurse attempted to call report to [facility]. Ashlee stated The patient no longer has a room and we can not take report from you. This nurse called Viviana from the transfer line and told her that we found transportation for the patient and the nurse attempted to call report and they denied report due to no bed now. Viviana stated The patient should have a bed, let me call the floor real quick. Viviana got back on the line and stated they gave the bed away. I asked her what should we do Air Evac is on the way now. Viviana asked this nurse to cancel transportation and hold the patient here. Viviana stated There was some miscommunication with the floor when I spoke to them earlier and they gave the bed away. I will call you back when patient has another bed assigned. Air Evac was cancelled. Dr. Puga updated on events.
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
[2024-07-08] MEDS: acetaminophen 325 mg Tablet 650 MG PO (18:45)
--- NOTE | 2024-07-08 18:48 | PC.NURSE ---
pt was given tylenol for body pain.
--- NOTE | 2024-07-08 20:00 | PC.NURSE ---
Patient reported shortness of breath. Checked oxygen and was reading 87%. Nasal cannula was not a good fit for the patient's nose, so gave a 21in nasal cannula with flared prongs. Patient's oxygen went up to 93% on 4L. Respiratory notified.
[2024-07-09 04:00] VITALS: BP 97/60; PULSE 82; RESP 20; TEMP 36.3; O2SAT 94
[2024-07-09 05:28] LABS: Basophils % 0.2 %; Eosinophils % 0.2 %; Hematocrit 23.2 % (37-53); Lymphocytes # 4.8 10^3/uL (0.8-4.8); Mean Corpuscular Hemoglobin 32.1 pg (27-33); Mean Corpuscular Volume 103.6 fl (82-101); Monocytes # 16.9 10^3/uL (0.2-0.9); Monocytes % 67.3 %; Neutrophils # 2.01 10^3/uL (1.8-7.7); Nucleated Red Blood Cells # 0.5 /100WBC; Nucleated Red Blood Cells % 1.8 %; Red Blood Count 2.24 10^6/uL (3.85-5.65); Red Cell Distribution Width 19.1 % (12.1-15.1); White Blood Count 25.16 10^3/uL (3.29-11.43)
[2024-07-09 05:48] LABS: Anion Gap 16.2 (5-19); Blood Urea Nitrogen 41 mg/dL (8-23); Calcium 7.9 mg/dL (8.5-10.5); Carbon Dioxide 23 mmol/L (22-29); Chloride 105 mmol/L (98-107); Creatinine Clr Calc Pharmacy 35.1263; Glucose 171 mg/dL (65-115); Osmolality Calculated 304 mOsm/kg (285-295); Potassium 4.2 mmol/L (3.5-5.1); Sodium 140 mmol/L (136-145)
[2024-07-09 05:56] LABS: Slide Review Slide Review Perform
[2024-07-09 05:58] LABS: Platelet Count 20 10^3/cmm (157-399)
[2024-07-09] MEDS: pantoprazole 40 mg SDV IVP ×2 (08:11→21:30)
[2024-07-09 08:24] VITALS: BP 121/61; PULSE 103; RESP 16; TEMP 36.6; O2SAT 97
[2024-07-09 08:55] VITALS: PULSE 105; O2SAT 90
[2024-07-09] MEDS: doxycycline 100 MG in sodium chloride 0.9% (plus) 100 ML IV ×2 (11:24→23:15)
[2024-07-09] MEDS: cefTRIAXone 1,000 mg SDV 1000 MG IVP (11:25)
[2024-07-09 12:09] VITALS: BP 116/56; PULSE 76; RESP 18; TEMP 36.5; O2SAT 98
[2024-07-09] MEDS: acetaminophen 325 mg Tablet 650 MG PO (12:34)
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
--- NOTE | 2024-07-09 15:32 | PC.NURSE ---
Addendum entered by Mago Barron LPN 07/09/24 16:28: Lost my at 66 Original Note: While rounding on pt, he stated I just want to go to sleep and not wake up. I've lived to be 88. I have lived a long life. I lost my 66 and a son at 61 and I don't want to fight anymore. I'm just tired and I want to go home. Dr. Puga notified via voalte at [phone].
[2024-07-09 16:01] VITALS: BP 98/57; PULSE 100; RESP 18; TEMP 36.8; O2SAT 93
--- NOTE | 2024-07-09 18:25 | PC.NURSE ---
[facility] transfer center called newspaper writer informed that patient has decided he does not want to be transfered at this time.
[2024-07-09 20:00] VITALS: BP 104/61; PULSE 62; RESP 21; TEMP 37.3; O2SAT 98
[2024-07-10] VITALS: BP 93/52; PULSE 103; RESP 13; TEMP 37.6; O2SAT 92
--- NOTE | 2024-07-10 03:53 | PC.NURSE ---
pt restless throughout the night, could not find comfortable position, foot of bed had been removed to allow leg room due to pt extremely tall, pt had sat in the recliner, then back to bed, then sat on side of bed and continued to lay down and sit back up. pt having difficulty breathing while laying down, breaths better sitting up. 02 sat remains 92% and above with 02 set at 5L.
[2024-07-10 04:00] VITALS: BP 118/62; RESP 19; TEMP 36.3
[2024-07-10 05:28] LABS: Mean Corpuscular HGB Conc 31.5 g/dL (30-55); Mean Corpuscular Hemoglobin 32.7 pg (27-33); Mean Corpuscular Volume 103.6 fl (82-101); Mean Platelet Volume 12.2 fL (7.4-10.4); Red Blood Count 1.96 10^6/uL (3.85-5.65)
[2024-07-10 05:49] LABS: Anion Gap 15.2 (5-19); Blood Urea Nitrogen 49 mg/dL (8-23); Calcium 8.1 mg/dL (8.5-10.5); Carbon Dioxide 22 mmol/L (22-29); Chloride 103 mmol/L (98-107); Creatinine Clr Calc Pharmacy 33.2776; Glucose 189 mg/dL (65-115); Osmolality Calculated 300 mOsm/kg (285-295); Potassium 4.2 mmol/L (3.5-5.1); Sodium 136 mmol/L (136-145)
[2024-07-10 06:00] VITALS: BMI 32.5
[2024-07-10 06:44] LABS: Hematocrit 20.3 % (37-53); Platelet Count 21 10^3/cmm (157-399); White Blood Count 33.04 10^3/uL (3.29-11.43)
[2024-07-10 06:45] LABS: Total Cells Counted 100 (0-100)
[2024-07-10 06:46] LABS: Absolute Eosinophils 0.7 10^3/cmm (0.0-0.7); Band Neutrophils Absolute 0.7 10^3/cmm (0.0-1.2); Eosinophils 2 %; Lymphocytes 4 %; Segmented Neutrophils 9 %
[2024-07-10 06:47] LABS: Absolute Neutrophil 3.6 10^3/cmm (1.4-6.5); Blastocytes 14 % (0-0); Macrocytosis 2+; Microcytosis 1+; Platelet Estimate Decreased (Normal); Polychromasia 1+
--- NOTE | 2024-07-10 06:49 | PC.NURSE ---
critical labs called to Dr. Payan, message left on voicemail
[2024-07-10] MEDS: acetaminophen 325 mg Tablet 650 MG PO (08:38)
[2024-07-10] MEDS: pantoprazole 40 mg SDV IVP (08:38)
[2024-07-10 08:39] VITALS: BP 133/64; PULSE 99; RESP 17; TEMP 36.4; O2SAT 94
[2024-07-10] MEDS: cefTRIAXone 1,000 mg SDV 1000 MG IVP (11:53)
[2024-07-10] MEDS: doxycycline 100 MG in sodium chloride 0.9% (plus) 100 ML IV (11:53)
--- NOTE | 2024-07-10 11:59 | PM.DCS ---
Discharge Providers Date of Admission: 07/07/24 15:44 Date of Discharge: July 10, 2024 Attending Provider at Admission: Alexi Puga Attending Provider at Discharge: Alexi Puga Primary Care Provider: Angel Martin MD Diagnoses at Discharge Discharge Diagnosis (1) Abnormal blood cell count: Status: Acute (2) Anemia: Status: Acute (3) Thrombocytopenia: Status: Acute Reason for Visit Reason for Visit: SOB Brief History: Pleasant 88-year-old gentleman with history of hypertension, was assessed in ER after presenting with fatigue shortness of breath, found to have acute anemia, globin 6.5, with thrombocytopenia complete this 32, with leukocytosis 16.95, with blasts elevated at 12, reassessment blast today 27, received 1 unit RBC transfusion with hemoglobin coming up to 7.2. Platelets today worsened to 21. With concern for acute leukemia transfer he is in process to [facility] where no beds are available. [facility] declined transfer with suspected leukemia, recommending tertiary care at [facility]. He reports today he is doing overall okay, but with his bottom being somewhat sore having to sit in bed. He normally walks at home with a walker. Hospital Course Hospital Course She was hospitalized for additional reassessment of blood counts, required additional blood transfusion for a total of 2. Platelets were requested with concern for further drop, but did maintain platelets around 20,000, without any active bleeding. His antiplatelet was held. Did develop some bronchitis symptoms, with secretions, was started on empiric antibiotic coverage with ceftriaxone and doxycycline. Awaiting transfer to [facility] for further assessment he on additional consideration decided not to pursue transfer and additional assessment and potential management of suspected leukemia. Again with abnormal blast cells in the automated differential, 14% today. Additionally with some TOM, so far and improved, creatinine 1.9. He has decided and discussed with his family transitioning to hospice care/comfort care. To allow this he is discharging to his daughter's home with hospice [facility]. Physical Exam Const: COMMON NORMALS: patient oriented x3 and alert GENERAL APPEARANCE: cooperative ORIENTATION/CONSCIOUSNESS: Yes awake HENMT: COMMON NORMALS: oropharynx normal Neck/C-Spine: COMMON NORMALS: no JVD Resp: COMMON NORMALS: normal respiratory effort and clear to auscultation bilaterally AUSCULTATION: clear to auscultation bilaterally Cardio: COMMON NORMALS: no JVD, regular rhythm, S1 normal heart sound present, S2 normal heart sound present and No murmurs present (Cardio) RHYTHM: regular rhythm HEART SOUNDS: S1 normal heart sound present and S2 normal heart sound present GI: COMMON NORMALS: Normal to inspection, nondistended, normoactive bowel sounds present, Soft to palpation and non-tender PALPATION: Yes Soft to palpation Extremity: COMMON NORMALS: no joint enlargement and no pedal edema Neuro: COMMON NORMALS: patient oriented x3 and moves all extremities SENSORIUM/ORIENTATION: Yes alert Skin: COMMON NORMALS: no rashes or lesions noted GENERAL SKIN EXAM: no rashes or lesions noted Discharge Data Studies Completed and Pending Completed Studies During Hospitalization Category Date Time Status XR chest 1V portable [id number] Stat Exams 07/05/24 12:40 Completed XR chest 1V portable [id number] Stat Exams 07/07/24 06:30 Completed US echo complete [CV. echo complete* [id number]] Stat Ultrasound 07/07/24 06:29 Completed Pending at discharge Category Date Time Status Basic Metabolic Panel AM LABS Lab 07/11/24 04:00 Ordered Complete Blood Count w/Auto AM LABS Lab 07/11/24 04:00 Ordered Occult Blood Stool [Immunochemical Fecal OCB] Routine Lab 07/07/24 08:02 Uncollected Sputum Culture and Gram Stain Routine Lab 07/08/24 10:51 Uncollected Radiology Impressions Chest X-Ray 07/07/24 06:30 IMPRESSION: 1. Chronic interstitial changes. No acute process noted. Laboratory Results WBC 33.04 10^3/uL (3.29-11.43) H* 07/10/24 05:02 RBC 1.96 10^6/uL (3.85-5.65) L 07/10/24 05:02 Hgb 6.40 g/dL (11.27-16.99) L* 07/10/24 05:02 Hct 20.3 % (37-53) L* 07/10/24 05:02 MCV 103.6 fl (82-101) H 07/10/24 05:02 MCH 32.7 pg (27-33) 07/10/24 05:02 MCHC 31.5 g/dL (30-55) 07/10/24 05:02 RDW 19.0 % (12.1-15.1) H 07/10/24 05:02 Plt Count 21 10^3/cmm (157-399) L* 07/10/24 05:02 MPV 12.2 fL (7.4-10.4) H 07/10/24 05:02 Neut % (Auto) 8.0 % 07/09/24 05:13 Lymph % (Auto) Not Reportable 07/10/24 05:02 [place] % (Auto) Not Reportable 07/10/24 05:02 Eos % (Auto) 0.2 % 07/09/24 05:13 Baso % (Auto) 0.2 % 07/09/24 05:13 Neut # (Auto) 2.01 10^3/uL (1.8-7.7) 07/09/24 05:13 Lymph # (Auto) Not Reportable 07/10/24 05:02 [place] # (Auto) Not Reportable 07/10/24 05:02 Eos # (Auto) 0.0 10^3/uL (0.0-0.8) 07/09/24 05:13 Baso # (Auto) 0.0 10^3/uL (0.0-0.1) 07/09/24 05:13 Nucleated RBC % (auto) 1.8 % 07/09/24 05:13 Total Counted 100 (0-100) 07/10/24 05:02 Atypical Lymphs % 2.0 % (0-5) 07/10/24 05:02 Absolute Neutrophils 3.6 10^3/cmm (1.4-6.5) 07/10/24 05:02 Segmented Neutrophils 9 % 07/10/24 05:02 Band Neutrophils 2.0 % 07/10/24 05:02 Absolute Lymphocytes 2.0 10^3/cmm (1.2-3.4) 07/10/24 05:02 Lymphocytes (Manual) 4 % 07/10/24 05:02 Monocytes (Manual) 0.0 % 07/10/24 05:02 Absolute Monocytes 0.0 10^3/cmm (0.1-0.6) L 07/10/24 05:02 Eosinophils (Manual) 2 % 07/10/24 05:02 Absolute Eosinophils 0.7 10^3/cmm (0.0-0.7) 07/10/24 05:02 Basophils (Manual) 0.0 % 07/10/24 05:02 Absolute Basophils 0.0 10^3/cmm (0.0-0.2) 07/10/24 05:02 Metamyelocytes 22.0 % 07/10/24 05:02 Myelocytes 15.0 % 07/10/24 05:02 Promyelocytes 30.0 % 07/10/24 05:02 Nucleated RBCs 2.0 /100WBC (0-1) H 07/10/24 05:02 Nucleated RBCs # 0.5 /100WBC 07/09/24 05:13 Blast Cells 14 % (0-0) H* 07/10/24 05:02 Platelet Estimate Decreased (Normal) 07/10/24 05:02 Polychromasia 1+ H 07/10/24 05:02 Anisocytosis 2+ H 07/05/24 12:52 Microcytosis 1+ H 07/10/24 05:02 Macrocytosis 2+ H 07/10/24 05:02 Ovalocytes 1+ H 07/05/24 12:52 PT 17.60 SECONDS (12.1-14.9) H 07/05/24 12:52 INR 1.35 (0.8-1.2) H 07/05/24 12:52 APTT 48.5 SECONDS (23.9-36.7) H 07/05/24 12:52 Fibrinogen 553 mg/dL (174-498) H 07/05/24 12:52 Sodium 136 mmol/L (136-145) 07/10/24 05:02 Potassium 4.2 mmol/L (3.5-5.1) 07/10/24 05:02 Chloride 103 mmol/L (98-107) 07/10/24 05:02 Carbon Dioxide 22 mmol/L (22-29) 07/10/24 05:02 Anion Gap 15.2 (5-19) 07/10/24 05:02 BUN 49 mg/dL (8-23) H 07/10/24 05:02 Creatinine 1.9 mg/dL (0.7-1.2) H 07/10/24 05:02 GFR Calculation Not Reportable 07/10/24 05:02 Glucose 189 mg/dL (65-115) H 07/10/24 05:02 Calculated Osmolality 300 mOsm/kg (285-295) H 07/10/24 05:02 Uric Acid 10.2 mg/dL (3.4-7.0) H 07/05/24 12:52 Calcium 8.1 mg/dL (8.5-10.5) L 07/10/24 05:02 Magnesium 2.1 mg/dL (1.7-2.3) 07/07/24 07:09 Total Bilirubin 1.2 mg/dL (0.15-1.2) 07/08/24 08:06 AST 14 U/L (0-40) 07/08/24 08:06 ALT 8 U/L (0-41) 07/08/24 08:06 Alkaline Phosphatase 51 U/L (40-130) 07/08/24 08:06 Lactate Dehydrogenase 358 U/L (135-225) H 07/05/24 12:52 Troponin T Baseline 66 ng/L (0-15) H 07/05/24 12:52 Troponin T 120 Minute 67.16 ng/L (0-15) H 07/05/24 14:36 Delta Troponin T 1.16 ABS# (0-10) 07/05/24 14:36 NT-Pro-B Natriuret Pep 47735 pg/mL (0-450) H 07/07/24 07:09 Total Protein 6.1 g/dL (6.6-8.7) L 07/08/24 08:06 Albumin 3.3 g/dL (3.5-5.2) L 07/08/24 08:06 Globulin 2.8 g/dL (1.3-4.6) 07/08/24 08:06 Urine Color Dark yellow (Yellow) A 07/08/24 13:00 Urine Appearance Cloudy (CLEAR) A 07/08/24 13:00 Urine pH 5.0 (5-7) 07/08/24 13:00 Ur Specific [place] 1.020 (1.005-1.030) 07/08/24 13:00 Urine Protein 1+ (Negative) A 07/08/24 13:00 Urine Glucose (UA) Negative (Normal) 07/08/24 13:00 Urine Ketones Trace (Negative) 07/08/24 13:00 Urine Blood Negative (Negative) 07/08/24 13:00 Urine Nitrate Negative (Negative) 07/08/24 13:00 Urine Bilirubin 1+ (Negative) H 07/08/24 13:00 Urine Urobilinogen 1.0 mg/dL (Negative) 07/08/24 13:00 Ur Leukocyte Esterase Trace (Negative) A 07/08/24 13:00 Urine RBC 0-4 /hpf (0-2) H 07/08/24 13:00 Urine WBC 0-4 /hpf (0-5) H 07/08/24 13:00 Ur Squamous Epith Cells 0-4 /hpf (0-5) H 07/08/24 13:00 Amorphous Sediment 1+ /hpf 07/08/24 13:00 Urine Bacteria Trace /hpf (NONE) 07/08/24 13:00 Hyaline Casts 0-4 /lpf H 07/08/24 13:00 Urine Mucus Trace /hpf 07/08/24 13:00 Coronavirus (PCR) Negative (Negative) 07/05/24 12:47 Influenza A (PCR) Negative (Negative) 07/07/24 08:23 Influenza Type B (PCR) Negative (Negative) 07/07/24 08:23 RSV (PCR) Negative (Negative) 07/07/24 08:23 SARS-CoV-2 (PCR) Negative (Negative) 07/07/24 08:23 Blood Type AB Positive 07/05/24 13:42 Rho(D) Type Rh positive 07/05/24 13:42 Antibody Screen Negative 07/05/24 13:42 Crossmatch See Detail 07/05/24 13:42 Vitals Last Vital Signs Temp 97.6 F 07/10/24 08:39 Pulse 99 07/10/24 08:39 Resp 17 07/10/24 08:39 BP 133/64 07/10/24 08:39 Pulse Ox 94 07/10/24 08:39 O2 Del Method Oxymask 07/10/24 08:39 O2 Flow Rate 5 07/10/24 08:00 Discharge Plan Discharge Patient Disposition: Hospice - Home Condition: Stable Prescriptions: Continued cyanocobalamin (vitamin B-12) [Vitamin B-12] 100 mcg Tablet 100 mcg PO QAM Discontinued lisinopril 10 mg tablet 10 mg PO QAM aspirin [Aspir-81] 81 mg Tablet,Delayed Release (Dr/Ec) 81 mg PO QAM Discharge Orders: Discharge Order (Routine); Ordered 07/10/24 Ordered By: Alexi Puga Referrals: [facility] [Outside] Angel Martin MD [Primary Care Provider] - 4-7 days Discharge Diet: As Directed Discharge Activity: Oxygen as instructed Patient Instructions: Vitamin B-12 (By mouth), Thrombocytopenia (DC), Opioid Safety Activity Restrictions/Additional Instructions: Continue easy to chew foods as tolerating. Continue oxygen support as needed, wean down as tolerating, targeting oxygen saturation 92%. Discharge Attestations Time Spent in Discharge Care*: greater than 30 min Quality Metrics Clinical Quality Measures [ No reported AMI, CVA or VTE this stay] Coding Level of Care Code 80163 Total time (in minutes) for Discharge: 40 Diagnoses Abnormal blood cell count R79.9 Anemia D64.9 Thrombocytopenia D69.6
[2024-07-10 12:04] VITALS: BP 102/58; PULSE 83; RESP 18; TEMP 36.4; O2SAT 93
[2024-07-10 13:52] VITALS: BP 102/58; PULSE 83; RESP 18; TEMP 36.4; O2SAT 93
== END 2024-07-10 13:30 | disposition hospice, home (50) ==
LOC: ER 07-07 12:27 → MEDSURG 07-07 15:44
PROVIDERS: Student in an Organized Health Care Education/Training Program; Admitting Provider Internal Medicine; Emergency Provider Family Medicine; PCP Family Medicine; Visit Provider Internal Medicine
DX: R79.9 Abnormal finding of blood chemistry, unspecified (principal); G47.00 Insomnia, unspecified; D64.9 Anemia, unspecified; R09.02 Hypoxemia; D69.6 Thrombocytopenia, unspecified; I10 Essential (primary) hypertension; Z79.899 Other long term (current) drug therapy; Z79.82 Long term (current) use of aspirin; Z11.52 Encounter for screening for COVID-19; Z75.1 Person awaiting admission to adequate facility elsewhere; M54.9 Dorsalgia, unspecified; R53.83 Other fatigue
CPT/HCPCS: 36415; 36430; 71045; 80048; 80053; 81001; 83615; 83735; 83880; 84484; 84550; 85007; 85025; 85384; 85610; 85730; 86850; 86900; 86920; 87637; 92610; 93005; 93306; 94640; 96365; 96375; 96376; 99285; G0378; J0696; J2470; J3490; J7030; P9016

== ENCOUNTER 2024-07-14 23:20 | Observation (INO) | payer MEDICARE, MEDICAID, SELFPAY ==
[2024-07-14 23:22] VITALS: BP 125/46; PULSE 98; RESP 26; TEMP 36.7; O2SAT 87; BMI 27.8
--- NOTE | 2024-07-14 23:24 | XRR_ITS ---
PROCEDURE INFORMATION: Exam: XR Abdomen Exam date and time: 07/14/2024 11:41 PM Age: 88 years old Clinical indication: Abdominal pain; Generalized; Additional info: Abd pain TECHNIQUE: Imaging protocol: Radiologic exam of the abdomen. Views: Frontal supine view of the abdomen. 1 View. COMPARISON: CR XR chest 1V portable [id number] 07/07/2024 7:24 AM FINDINGS: Gastrointestinal tract: Normal. No bowel dilation. Intraperitoneal space: Surgical clips in the right upper quadrant. Bones/joints: Multilevel lumbar spondylosis. XR/XR abdomen 1V* [id number] IMPRESSION: No evidence of acute abdominal process.
--- NOTE | 2024-07-14 23:46 | ED_ITS ---
HPI - Abdominal Pain 2 General: Chief Complaint: Abdominal Pain Stated Complaint: abd pain Time Seen by Provider: 07/14/24 23:24 History of Present Illness: This is an 88-year-old man who was recently admitted to the hospital with anemia and suspected leukemia. There had been initially a plan to transfer to tertiary care but ultimately the patient decided he did not want to receive any more blood and did not want to pursue treatment and so he went home on hospice. Apparently he has developed worsening abdominal pain and discomfort in had received some hydrocodone from hospice but this was not controlling his pain so they were told to call 911 and he came to the hospital. Nonfocal abdominal pain. Related Data Home Medications ?Medication ?Instructions ?Recorded ?Confirmed cyanocobalamin (vitamin B-12) 100 100 mcg PO QAM 07/0507/05/24 mcg tablet (Vitamin B-12) Allergies Allergy/AdvReac Type Severity Reaction Status Date / Time No Known Allergies Allergy Verified 07/14/24 23:29 Review of Systems 2 Narrative: Constitutional symptoms: Negative except as documented in HPI. Skin symptoms: Negative except as documented in HPI. Eye symptoms: Negative except as documented in HPI. ENMT symptoms: Negative except as documented in HPI. Respiratory symptoms: Negative except as documented in HPI. Cardiovascular symptoms: Negative except as documented in HPI. Gastrointestinal symptoms: Negative except as documented in HPI. Genitourinary symptoms: Negative except as documented in HPI. Musculoskeletal symptoms: Negative except as documented in HPI. Neurologic symptoms: Negative except as documented in HPI. Psychiatric symptoms: Negative except as documented in HPI. Endocrine symptoms: Negative except as documented in HPI. [facility] ED 2 [facility]: Medical History (Updated 07/15/24 @ 01:06 by Shilpa Razo MD) HTN (hypertension) Physical Exam 2 Narrative: EXAM NARRATIVE: General: Alert, appears ill Skin: Warm, dry. Pale Head: Normocephalic, atraumatic. Neck: Supple, trachea midline. Eye: Extraocular movements are intact. Ears, nose, mouth and throat: mucosa moist. Cardiovascular: Regular, Normal peripheral perfusion. Patient is quite edematous. He has some bruising. Respiratory: Lungs are clear to auscultation, respirations are non-labored, breath sounds are equal, Symmetrical chest wall expansion. Gastrointestinal: Soft, Nontender, Non distended Musculoskeletal: Normal ROM, no deformity. Neurological: Alert No focal neurological deficit observed. Psychiatric: Patient is a bit agitated Course 2 Vital Signs: Vital signs: Vital Signs Temperature 98.1 F 07/14/24 23:22 Pulse Rate 100 07/15/24 00:32 Respiratory Rate 18 07/15/24 00:32 Blood Pressure 97/47 07/15/24 00:32 Pulse Oximetry 94 07/15/24 00:32 Oxygen Delivery Me thod Nasal Cannula 07/15/24 00:32 MDM - Abdominal Pain Medical Decision Making Lab Review: Laboratory results were reviewed and interpreted by myself the emergency room physician. Patient has worsening leukocytosis and likely leukemia. Has worsening anemia with a hemoglobin of 5.4. Platelets are a bit worse at 13. Worsening renal function with a BUN/creatinine of 77 and 2.1. I discussed this with the patient and with family. He does not want any more blood products. He does not want any aggressive interventions. He just was not having good pain and anxiety control at home with hospice. Family has asked for possible inpatient hospice possibly at [place] at the hospice house. Consultation: I spoke with Dr. Payan who agrees to admission to comfort measures only. Assessment and plan: Leukemia Anemia Thrombocytopenia Comfort measures only Worsening renal failure -I discussed the patient with the hospitalist on-call who is admitting the patient. - Discussed findings and plan with patient. Answered any questions. - All laboratory values were reviewed and interpreted personally by myself, the ER physician - All imaging was reviewed and interpreted personally by myself, the ER physician. - Evaluation and treatment of this problem were appropriate in the emergency setting Lab Data 07/14/24 23:48 07/14/24 23:48 Labs/Radiology: Radiology Impressions Abdomen X-Ray 07/14/24 23:24 IMPRESSION: No evidence of acute abdominal process. Laboratory Results WBC 100.92 10^3/uL (3.29-11.43) H* 07/14/24 23:48 Corrected WBC 96.1 10^3/cmm (4.8-10.8) H 07/14/24 23:48 RBC 1.72 10^6/uL (3.85-5.65) L 07/14/24 23:48 Hgb 5.40 g/dL (11.27-16.99) L* 07/14/24 23:48 Hct 17.6 % (37-53) L* 07/14/24 23:48 MCV 102.3 fl (82-101) H 07/14/24 23:48 MCH 31.4 pg (27-33) 07/14/24 23:48 MCHC 30.7 g/dL (30-55) 07/14/24 23:48 RDW 18.9 % (12.1-15.1) H 07/14/24 23:48 Plt Count 13 10^3/cmm (157-399) L* 07/14/24 23:48 MPV 9.0 fL (7.4-10.4) 07/14/24 23:48 Lymph % (Auto) Not Reportable 07/14/24 23:48 [place] % (Auto) Not Reportable 07/14/24 23:48 Lymph # (Auto) Not Reportable 07/14/24 23:48 [place] # (Auto) Not Reportable 07/14/24 23:48 Total Counted 100 (0-100) 07/14/24 23:48 Atypical Lymphs % 6.0 % (0-5) H 07/14/24 23:48 Absolute Neutrophils 4.0 10^3/cmm (1.4-6.5) 07/14/24 23:48 Segmented Neutrophils 2 % 07/14/24 23:48 Band Neutrophils 2.0 % 07/14/24 23:48 Absolute Lymphocytes 15.1 10^3/cmm (1.2-3.4) H 07/14/24 23:48 Lymphocytes (Manual) 9 % 07/14/24 23:48 Monocytes (Manual) 3.0 % 07/14/24 23:48 Absolute Monocytes 3.0 10^3/cmm (0.1-0.6) H 07/14/24 23:48 Eosinophils (Manual) 0 % 07/14/24 23:48 Absolute Eosinophils 0.0 10^3/cmm (0.0-0.7) 07/14/24 23:48 Basophils (Manual) 0.0 % 07/14/24 23:48 Absolute Basophils 0.0 10^3/cmm (0.0-0.2) 07/14/24 23:48 Metamyelocytes 12.0 % 07/14/24 23:48 Myelocytes 19.0 % 07/14/24 23:48 Promyelocytes 4.0 % 07/14/24 23:48 Nucleated RBCs 5.0 /100WBC (0-1) H 07/14/24 23:48 Blast Cells 38 % (0-0) H* 07/14/24 23:48 Smudge Cells 1+ H 07/14/24 23:48 Platelet Estimate Decreased (Normal) 07/14/24 23:48 Anisocytosis 2+ H 07/14/24 23:48 Macrocytosis 1+ H 07/14/24 23:48 Sodium 140 mmol/L (136-145) 07/14/24 23:48 Potassium 5.0 mmol/L (3.5-5.1) 07/14/24 23:48 Chloride 107 mmol/L (98-107) 07/14/24 23:48 Carbon Dioxide 20 mmol/L (22-29) L 07/14/24 23:48 Anion Gap 18.0 (5-19) 07/14/24 23:48 BUN 77 mg/dL (8-23) H 07/14/24 23:48 Creatinine 2.1 mg/dL (0.7-1.2) H 07/14/24 23:48 GFR Calculation Not Reportable 07/14/24 23:48 Glucose 189 mg/dL (65-115) H 07/14/24 23:48 Calculated Osmolality 318 mOsm/kg (285-295) H 07/14/24 23:48 Lactic Acid 1.8 mmol/L (0.5-2.2) 07/14/24 23:48 Calcium 8.3 mg/dL (8.5-10.5) L 07/14/24 23:48 Total Bilirubin 0.8 mg/dL (0.15-1.2) 07/14/24 23:48 AST 18 U/L (0-40) 07/14/24 23:48 ALT 15 U/L (0-41) 07/14/24 23:48 Alkaline Phosphatase 58 U/L (40-130) 07/14/24 23:48 C-Reactive Protein 78.4 mg/L (0.0-4.9) H 07/14/24 23:48 Total Protein 5.8 g/dL (6.6-8.7) L 07/14/24 23:48 Albumin 3.3 g/dL (3.5-5.2) L 07/14/24 23:48 Globulin 2.5 g/dL (1.3-4.6) 07/14/24 23:48 Lipase 43 U/L (13-60) 07/14/24 23:48 Urine Color Yellow (Yellow) 07/15/24 00:30 Urine Appearance Clear (CLEAR) 07/15/24 00:30 Urine pH 5.0 (5-7) 07/15/24 00:30 Ur Specific [place] 1.017 (1.005-1.030) 07/15/24 00:30 Urine Protein 1+ (Negative) A 07/15/24 00:30 Urine Glucose (UA) Negative (Normal) 07/15/24 00:30 Urine Ketones Trace (Negative) 07/15/24 00:30 Urine Blood Negative (Negative) 07/15/24 00:30 Urine Nitrate Negative (Negative) 07/15/24 00:30 Urine Bilirubin Negative (Negative) 07/15/24 00:30 Urine Urobilinogen 1.0 mg/dL (Negative) 07/15/24 00:30 Ur Leukocyte Esterase Trace (Negative) A 07/15/24 00:30 Urine RBC None /hpf (0-2) 07/15/24 00:30 Urine WBC None /hpf (0-5) 07/15/24 00:30 Ur Squamous Epith Cells 0-4 /hpf (0-5) H 07/15/24 00:30 Amorphous Sediment Not Reportable 07/15/24 00:30 Urine Bacteria Trace /hpf (NONE) 07/15/24 00:30 Hyaline Casts 0-4 /lpf H 07/15/24 00:30 Urine Mucus 1+ /hpf 07/15/24 00:30 All radiology interpretation(s) finalized by discharge Discharge Plan Discharge Patient Disposition: Placed in Observation Clinical Impression: Anemia, Abnormal blood cell count, Comfort measures only status Coding Level of Care Code ED Reporting Manager for Lo Vasquez
[2024-07-15 00:15] LABS: Alanine Aminotransferase 15 U/L (0-41); Albumin Level 3.3 g/dL (3.5-5.2); Alkaline Phosphatase 58 U/L (40-130); Aspartate Amino Transferase 18 U/L (0-40); Blood Urea Nitrogen 77 mg/dL (8-23); C Reactive Protein 78.4 mg/L (0.0-4.9); Calcium 8.3 mg/dL (8.5-10.5); Carbon Dioxide 20 mmol/L (22-29); Chloride 107 mmol/L (98-107); Creatinine Clr Calc Pharmacy 28.0178; Globulin 2.5 g/dL (1.3-4.6); Glucose 189 mg/dL (65-115); Lipase 43 U/L (13-60); Osmolality Calculated 318 mOsm/kg (285-295); Sodium 140 mmol/L (136-145); Total Bilirubin 0.8 mg/dL (0.15-1.2); Total Protein 5.8 g/dL (6.6-8.7)
[2024-07-15 00:16] LABS: Lactic Sepsis W/Reflex 1.8 mmol/L (0.5-2.2)
[2024-07-15 00:22] LABS: Mean Corpuscular HGB Conc 30.7 g/dL (30-55); Mean Corpuscular Hemoglobin 31.4 pg (27-33); Mean Corpuscular Volume 102.3 fl (82-101); Red Blood Count 1.72 10^6/uL (3.85-5.65); Red Cell Distribution Width 18.9 % (12.1-15.1)
[2024-07-15 00:32] VITALS: BP 97/47; PULSE 100; RESP 18; O2SAT 94
[2024-07-15 00:34] LABS: Bilirubin Urine Negative (Negative); Blood Urine Negative (Negative); Glucose Urine UA Negative (Normal); Ketones Urine Trace (Negative); Leukocyte Esterase Urine Trace (Negative); Nitrate Urine Negative (Negative); Protein Urine 1+ (Negative); Specific Gravity, Urine 1.017 (1.005-1.030); Urine Appearance Clear (CLEAR); Urine Color Yellow (Yellow)
[2024-07-15 00:44] LABS: Corrected White Blood Count 96.1 10^3/cmm (4.8-10.8); Eosinophils 0 %; Lymphocytes 9 %; Lymphocytes Absolute 15.1 10^3/cmm (1.2-3.4); Platelet Estimate Decreased (Normal); Segmented Neutrophils 2 %; Total Cells Counted 100 (0-100)
[2024-07-15 00:45] LABS: Anisocytosis 2+; Macrocytosis 1+; Smudge Cells 1+
[2024-07-15 00:46] LABS: Hematocrit 17.6 % (37-53); Platelet Count 13 10^3/cmm (157-399); White Blood Count 100.92 10^3/uL (3.29-11.43)
[2024-07-15 00:47] LABS: Blastocytes 38 % (0-0)
[2024-07-15 00:57] LABS: Bacteria Urine TRACE /hpf; Hyaline Casts Urine 0-4 /lpf; Squamous Epithelial Cell Urine 0-4 /hpf (0-5)
[2024-07-15 00:58] LABS: Mucus Urine 1+ /hpf
--- NOTE | 2024-07-15 01:02 | P.HP_ITS ---
Providers/Chief Complaint 2 Primary Care Provider: Angel Martin MD Chief Complaint: abd pain History of Present Illness Christian Ace is a 88 year old male who was brought in for pain management. At home patient is on hospice, patient is not able to provide any history, received Ativan and IV fluids in the ER. He was hypotensive CBC consistent with thrombocytopenia anemia leukemoid crisis. Patient showing signs of fluid overload as well, showing agonal breathing on 2 L of oxygen. Review of Systems 2 General: Reports: ROS unobtainable due to medical condition Medications/Allergies Home Medications ?Medication ?Instructions ?Recorded ?Confirmed ?Last Taken ?Type cyanocobalamin (vitamin B-12) 100 100 mcg PO QAM 07/0507/05/24 07/05/24 History mcg tablet (Vitamin B-12) Allergies Allergy/AdvReac Type Severity Reaction Status Date / Time No Known Allergies Allergy Verified 07/14/24 23:29 PFSH Acute 2 PFSH: Medical History HTN (hypertension) Vitals/I&O/Wt Last Vital Signs Temp 98.1 F 07/14/24 23:22 Pulse 100 07/15/24 00:32 Resp 18 07/15/24 00:32 BP 97/47 07/15/24 00:32 Pulse Ox 94 07/15/24 00:32 O2 Del Method Nasal Cannula 07/15/24 00:32 07/14/24 07/14/24 07/15/24 14:59 22:59 06:59 Intake Total 0 / 0 Balance 0 / 0 Weight last 48 hrs Weight 90.718 kg Physical Exam 2 Narrative: Oriented to himself Abdomen bleeding Encephalopathic Signs of fluid overload Weak pulses of lower extremities Distended abdomen nontender Currently on 2 L nasal cannula S1, S2 Hypotensive Data 07/14/24 23:48 07/14/24 23:48 A&P Assessment and plan (1) Anemia: (2) Abnormal blood cell count: (3) Thrombocytopenia: (4) VELEZ (dyspnea on exertion): (5) Comfort measures only status: Plan Comfort measures Inadequate pain control at home on hospice service Family not present at the bedside at the time of evaluation Liquid morphine Baugh catheter placement Continue oxygen supplementation PDMP PDMP Reviewed: Not Reviewed Attestations 2 Medical Necessity Statement*: Cardiac phimosis anticipating discharge within 24 to 48 hours Diagnoses Anemia D64.9 Abnormal blood cell count R79.9 Thrombocytopenia D69.6 VELEZ (dyspnea on exertion) R06.09 Comfort measures only status Z51.5
[2024-07-15] MEDS: sodium chloride 0.9% 1,000 ML 999 ML IV (01:28)
[2024-07-15] MEDS: LORazepam 2 mg/mL INJ 1 mL 1 MG IVP (01:28)
[2024-07-15 01:31] VITALS: RESP 22; O2SAT 96
[2024-07-15] MEDS: morphine 4 mg/mL SDV 1 mL IVP (01:31)
[2024-07-15 01:34] VITALS: BP 92/61; PULSE 86; RESP 24; O2SAT 90
[2024-07-15 02:47] VITALS: BMI 31.5
[2024-07-15 03:35] VITALS: BP 96/61; PULSE 93; RESP 22; TEMP 36.4; O2SAT 95
--- NOTE | 2024-07-15 07:51 | PC.NURSE ---
This nurse entered the room at approximately 0700 to round and get report on pt. Went back to room at 0740 and pt was found to be . Charge nurse, house sup, and hospitalist notified as well as family.
--- NOTE | 2024-07-15 07:58 | PC.NURSE ---
Daughter Nae called and notified of the expiration of the pt. She reports they wish to use [facility].
--- NOTE | 2024-07-15 09:41 | PC.NURSE ---
Pt's family called back changed the home to [facility] home.
--- NOTE | 2024-07-15 09:56 | PC.NURSE ---
[facility] called and notified that pt needs transported.
--- NOTE | 2024-07-15 10:51 | PC.NURSE ---
home picked up pt to transport to home
[2024-07-15 10:52] VITALS: BP 0/0; PULSE 0; RESP 0; TEMP -17.7; TEMP 0; O2SAT 0
--- NOTE | 2024-07-17 21:08 | PM.DDS ---
Discharge Providers DDS Date of Admission: 07/15/24 01:04 Date Summary Completed: 07/17/24 Attending Provider at Admission: Mike Payan MD Time of : 07:40 Attending Provider at Discharge: Mike Payan MD Primary Care Provider: Angel Martin MD DS Diagnoses Hospital Diagnoses (1) Anemia: (2) Abnormal blood cell count: (3) Thrombocytopenia: (4) VELEZ (dyspnea on exertion): (5) Comfort measures only status: Reason for Visit Reason for Visit abd pain Summary Date and Time of Date of : 07/15/24 Time of : 07:40 Summary Summary: Patient was admitted on hospice service, he was already on hospice at home came in for uncontrolled pain management. Patient next day around 7:40 AM Additional Data Confirmation of as documented by pronouncing clinician: no pulse, no respirations, no heart sounds and pupils fixed and dilated Family: contacted Additional persons at bedside: nursing staff Attending/PCP notified?: Attending notified Autopsy requested?: No Advance directives?: Yes Hospice patient?: Yes Discharge Plan Discharge Patient Disposition: Condition: Stable Probable Cause of Probable cause of : Cardiac arrest DS Attestations Time Spent in /Discharge Care*: less than 30 min Quality - AMI: AMI present?: No Quality - Stroke: CVA present?: No Symptom Onset Unknown: No Quality - VTE: VTE present?: No Deep Vein Thrombosis/Pulmonary Embolism Present on Admission: No Coding Level of Care Code Acute Code for Chg Fwd Diagnoses Anemia D64.9 Abnormal blood cell count R79.9 Thrombocytopenia D69.6 VELEZ (dyspnea on exertion) R06.09 Comfort measures only status Z51.5
== END 2024-07-15 10:52 | disposition expired ==
LOC: ER 07-15 01:14 → MEDSURG 07-15 02:07
PROVIDERS: Admitting Provider Internal Medicine; Emergency Provider Emergency Medicine; PCP Family Medicine; Visit Provider Internal Medicine
DX: Z51.5 Encounter for palliative care (principal); D64.9 Anemia, unspecified; D69.6 Thrombocytopenia, unspecified; R10.9 Unspecified abdominal pain; I10 Essential (primary) hypertension; I95.9 Hypotension, unspecified; G93.40 Encephalopathy, unspecified; K92.2 Gastrointestinal hemorrhage, unspecified; R06.09 Other forms of dyspnea; D72.829 Elevated white blood cell count, unspecified
CPT/HCPCS: 36415; 51702; 74018; 80053; 81001; 83605; 83690; 85007; 85025; 86140; 96361; 96374; 96375; 99285; G0378; J2060; J2270; J7030